=== PATIENT | female | born 1995 | race Caucasian/White ===

== ENCOUNTER 2019-05-02 08:02 | Outpatient (CLI) | payer BC ==
[2019-05-02 08:46] LABS: BASOPHILS % (AUTO) 0.5 %; EOSINOPHILS # (AUTO) 0.1 10^3/uL (0.0-0.7); EOSINOPHILS % (AUTO) 0.8 %; HGB - HEMOGLOBIN 12.7 g/dL (12.0-16.0); LYMPHOCYTES # (AUTO) 2.7 10^3/uL (1.5-3.5); LYMPHOCYTES % (AUTO) 42.1 %; MEAN CORPUSCULAR HEMOGLOBIN 31.1 pg (27.0-31.0); MEAN CORPUSCULAR HGB CONC 32.8 g/dL (32.0-36.0); MEAN CORPUSCULAR VOLUME 94.6 fL (81.0-99.0); MEAN PLATELET VOLUME 10.2 fL (7.9-10.8); MONOCYTES # (AUTO) 0.4 10^3/uL (0.0-1.0); MONOCYTES % (AUTO) 5.7 %; NEUTROPHILS # (AUTO) 3.3 10^3/uL (1.5-6.6); NEUTROPHILS % (AUTO) 50.7 %; PLT - PLATELET COUNT 224 10^3/uL (130-450); RED BLOOD COUNT 4.09 10^6/uL (4.20-5.40); RED CELL DISTRIBUTION WIDTH 12.7 % (12.0-15.0); WHITE BLOOD COUNT 6.5 x10^3/uL (4.8-10.8)
[2019-05-02 08:58] LABS: ALBUMIN 4.4 g/dL (3.2-5.5); ALBUMIN/GLOBULIN RATIO 1.3 (1.0-2.2); ALKALINE PHOSPHATASE 47 IU/L (42-121); ALT ALANINE AMINOTRANSFERASE 13 IU/L (10-60); AST ASPARTATE AMINOTRANSFERASE 15 IU/L (10-42); BILIRUBIN,TOTAL 0.6 mg/dL (0.2-1.0); BUN - BLOOD UREA NITROGEN 14 mg/dL (6-20); CALCIUM 9.4 mg/dL (8.5-10.3); CARBON DIOXIDE - CO2 23 mmol/L (21-32); CHLORIDE 106 mmol/L (101-111); CHOL/HDL RATIO 5.1 (<4.4); CHOLESTEROL 218 mg/dL; CREATININE 0.6 mg/dL (0.4-1.0); GFR - MDRD 124 (>89); GLUCOSE 101 mg/dL (70-100); HDL CHOLESTEROL 43 mg/dL; LDL CHOLESTEROL,CALCULATED 153 mg/dL; LDL/HDL RATIO 3.6 (<4.4); SODIUM 140 mmol/L (135-145); TOTAL PROTEIN 7.8 g/dL (6.7-8.2); VLDL CHOLESTEROL 22 mg/dL
== END 2019-05-02 08:03 | disposition home or self-care (01) ==
LOC: LAB 08:02
PROVIDERS: ATTEND Nurse Practitioner
DX: Z00.00 Encounter for general adult medical examination without abnormal findings (principal)
CPT/HCPCS: 36415; 80053; 80061; 83721; 84443; 85025

== ENCOUNTER 2019-10-21 08:07 | Outpatient (CLI) | payer BC ==
[2019-10-21 08:54] LABS: CARBON DIOXIDE - CO2 26 mmol/L (21-32); CHLORIDE 104 mmol/L (101-111); MAGNESIUM 2.1 mg/dL (1.7-2.8); SODIUM 138 mmol/L (135-145)
[2019-10-21 09:57] LABS: CRP - C-REACTIVE PROTEIN < 1.0 mg/dL (0-1.0)
== END 2019-10-21 08:08 | disposition home or self-care (01) ==
LOC: LAB 08:07
PROVIDERS: ATTEND Nurse Practitioner
DX: M25.50 Pain in unspecified joint (principal)
CPT/HCPCS: 36415; 80051; 83735; 84443; 85651; 86140

== ENCOUNTER 2019-10-31 10:40 | Outpatient (CLI) | payer BC | END 2019-10-31 23:59 | disposition home or self-care (01) | LOC: LAB.R 10:40 | PROVIDERS: ATTEND Nurse Practitioner | DX: J06.9 Acute upper respiratory infection, unspecified (principal) | CPT/HCPCS: 87275; 87276 ==

== ENCOUNTER 2020-09-12 08:00 | Outpatient (CLI) | payer BC, OTHER ==
[2020-09-12 18:45] LABS: BASOPHILS % (AUTO) 0.5 %; EOSINOPHILS # (AUTO) 0.1 10^3/uL (0.0-0.7); HGB - HEMOGLOBIN 13.1 g/dL (12.0-16.0); LYMPHOCYTES # (AUTO) 2.9 10^3/uL (1.5-3.5); LYMPHOCYTES % (AUTO) 36.8 %; MEAN CORPUSCULAR HEMOGLOBIN 31.5 pg (27.0-31.0); MEAN CORPUSCULAR VOLUME 92.5 fL (81.0-99.0); MEAN PLATELET VOLUME 10.2 fL (7.9-10.8); MONOCYTES # (AUTO) 0.4 10^3/uL (0.0-1.0); MONOCYTES % (AUTO) 5.5 %; NEUTROPHILS # (AUTO) 4.4 10^3/uL (1.5-6.6); NEUTROPHILS % (AUTO) 55.9 %; PLT - PLATELET COUNT 248 10^3/uL (130-450); RED BLOOD COUNT 4.16 10^6/uL (4.20-5.40); RED CELL DISTRIBUTION WIDTH 12.6 % (12.0-15.0); WHITE BLOOD COUNT 7.9 x10^3/uL (4.8-10.8)
[2020-09-12 19:21] LABS: ALBUMIN 4.7 g/dL (3.2-5.5); ALBUMIN/GLOBULIN RATIO 1.6 (1.0-2.2); BILIRUBIN,TOTAL 1.1 mg/dL (0.2-1.0); CALCIUM 9.8 mg/dL (8.5-10.3); CREATININE 0.5 mg/dL (0.4-1.0); TOTAL PROTEIN 7.6 g/dL (6.7-8.2)
[2020-09-12 19:27] LABS: HEMOGLOBIN A1c% 4.7 % (4.27-6.07)
== END 2020-09-12 23:59 | disposition home or self-care (01) ==
LOC: LAB.WCP 08:00
PROVIDERS: ATTEND Nurse Practitioner Family
DX: R10.9 Unspecified abdominal pain (principal); Z86.39 Personal history of other endocrine, nutritional and metabolic disease
CPT/HCPCS: 36415; 80053; 82150; 83036; 83690; 85025

== ENCOUNTER 2020-09-20 16:38 | Outpatient (CLI) | payer BC, OTHER ==
[2020-09-20] MEDS ORDERED: IOVERSOL 320 100 ML VIAL IVP ONE ×2 (16:54→17:52)
[2020-09-20] MEDS ORDERED: IOVERSOL 320 50 ML VIAL ONE (16:54)
[2020-09-20] MEDS ORDERED: IOVERSOL 320 50 ML VIAL PO ONE (17:53)
--- NOTE | 2020-09-20 19:17 | CT Report ---
PROCEDURE: Abdomen/Pelvis W INDICATIONS: ABD PAIN CONTRAST: IV CONTRAST: Optiray 320 ml: 100 PO CONTRAST: Optiray 320 ml50 TECHNIQUE: After the administration of nonionic contrast, 5 mm thick sections acquired from the diaphragms to th e symphysis. 5 mm thick coronal and sagittal reformats were acquired. For radiation dose reduction, the following was used: automated exposure control, adjustment of mA and/or kV according to patient size. COMPARISON: None. FINDINGS: Image quality: Excellent. ABDOMEN: Lung bases: Lung bases are clear. Heart size is normal. Solid organs: Liver and spleen are normal in size and enhancement. Gallbladder appears normal Bili christy system is non dilated. Pancreas enhances normally. No adrenal nodules. Kidneys demonstrate nor mal size and enhancement, without hydronephrosis. Peritoneum and bowel: Bowel loops demonstrate normal wall thickness and caliber. No free fluid or a ir. Nodes and vessels: No retroperitoneal or mesenteric adenopathy by size criteria. Aorta and inferior vena cava are normal in size. Miscellaneous: No ventral hernias. PELVIS: Genitourinary: Bladder wall thickness is normal. What appears to be an involuting right ovarian cys t is superimposed on an additional cystic structure with the overall dimensions approximately 3.6 cm. No abnormal free fluid or suspected hemorrhage within the peritoneal space is found. A normal or abn ormal appendix is not seen. Miscellaneous: No inguinal hernias or adenopathy. Bones: No suspicious bony lesions. No vertebral body compression fractures. IMPRESSION: Probable hemorrhagic right ovarian cyst, but no hemorrhage into the peritoneal space is seen. A definite source of abdominal pain such as appendicitis or diverticulitis is not found. Depend ing on the clinical status follow-up by pelvic ultrasound may be warranted. Reviewed by: Edgardo Roque MD on 09/20/2020 7:16 PM PST Approved by: Edgardo Roque MD on 09/20/2020 7:16 PM PST Station ID: [id number]
== END 2020-09-20 16:39 | disposition home or self-care (01) ==
LOC: DI 16:38
PROVIDERS: ATTEND Nurse Practitioner Family
DX: R10.9 Unspecified abdominal pain (principal)
CPT/HCPCS: 74177; Q9967

== ENCOUNTER 2020-09-27 18:41 | Outpatient (CLI) | payer BC, OTHER ==
--- NOTE | 2020-09-28 09:08 | Ultrasound Report ---
PROCEDURE: Pelvic w/Transvaginal INDICATIONS: RT SIDE OVARIAN CYST TECHNIQUE: Real-time scanning was performed of the pelvic organs, with image documentation. Additional endovagi nal scanning was necessary due to incomplete visualization of the adnexal and endometrial structures by transabdominal scanning. COMPARISON: CT abdomen pelvis 09/20/2020 FINDINGS: Transabdominal scanning: Limited scanning through the kidneys shows no hydronephrosis. No pathologi c free abdominal or pelvic fluid. Endovaginal scanning: Uterus: Uterus is anteverted and normal in size at 7.0 x 3.8 x 5.4 cm. The endometrium measures 7.7 mm in combined thickness. A single less than 2 mm endometrial cyst is present, nonspecific. Ovaries: The right ovary measures 3.1 x 2.4 x 2.9 cm for a volume of 11.3 cc. There is a simple susan nant follicle measuring 1.6 cm. There is otherwise normal follicular echotexture without associated m ass or cyst. The left ovary measures 2.9 x 1.9 x 2.4 cm for a volume of 6.9 cc. There is a normal fol licular echotexture. Normal vascularity in each ovary. IMPRESSION: 1. There has been interval resolution of right ovarian corpus luteum since the prior study. 2. No evidence of residual hemorrhagic cyst on either ovary. 3. Normal uterus. Reviewed by: Joselin Hahn MD on 09/28/2020 9:06 AM PST Approved by: Joselin Hahn MD on 09/28/2020 9:06 AM PST Station ID: [id number]
--- NOTE | 2020-09-29 00:14 | Ultrasound Report ---
PROCEDURE: Abdomen Limited INDICATIONS: RUQ PAIN TECHNIQUE: Real-time focused scanning was performed of the right upper quadrant, with image documentation. COMPARISON: CT abdomen pelvis 09/20/2020. FINDINGS: The liver demonstrates no focal hepatic lesions. Gallbladder appears within normal limits without gallstones, wall thickening, or pericholecystic flui d. No intra or extrahepatic biliary ductal dilatation. Common bile duct measures up to 2 mm. The visualized pancreas appears unremarkable sonographically. The right kidney measures up to 12 cm. No hydronephrosis. Evaluation of the abdominal wall in the right periumbilical region in the area of pain demonstrates n o discrete hernia. IMPRESSION: 1. No evidence of cholelithiasis or cholecystitis. 2. No evidence of right hydronephrosis. 3. No discrete abdominal wall hernia identified in the right periumbilical region in the area of pain . Reviewed by: Rogelio Wilde MD on 09/29/2020 12:13 AM PST Approved by: Rogelio Wilde MD on 09/29/2020 12:13 AM PST Station ID: [id number]
== END 2020-09-27 18:42 | disposition home or self-care (01) ==
LOC: DI 18:41
PROVIDERS: ATTEND Family Medicine
DX: R10.11 Right upper quadrant pain (principal); N83.291 Other ovarian cyst, right side

== ENCOUNTER 2020-11-20 16:11 | Outpatient (CLI) | payer OTHER | END 2020-11-20 16:12 | disposition home or self-care (01) | LOC: COV 16:11 | PROVIDERS: ATTEND Family Medicine | DX: R05 Cough (principal); M79.10 Myalgia, unspecified site; R53.83 Other fatigue; R68.83 Chills (without fever); R19.7 Diarrhea, unspecified; R11.11 Vomiting without nausea; Z20.822 Contact with and (suspected) exposure to COVID-19 ==

== ENCOUNTER 2021-01-22 14:14 | Outpatient (CLI) | payer OTHER ==
[2021-01-22 15:02] LABS: THYROID STIMULATING HORMONE 1.41 uIU/mL (0.34-5.60)
[2021-01-22 15:07] LABS: PROLACTIN 27.56 ng/mL
[2021-01-22 15:29] LABS: FOLLICLE STIMULATING HORMONE 1.49 mIU/mL
[2021-01-22 15:30] LABS: LUTEINIZING HORMONE 5.32 mIU/mL
[2021-01-23 06:32] LABS: ESTRADIOL 135 pg/mL
== END 2021-01-22 14:15 | disposition home or self-care (01) ==
LOC: LAB 14:14
PROVIDERS: ATTEND Obstetrics & Gynecology
DX: N97.9 Female infertility, unspecified (principal)
CPT/HCPCS: 36415; 82626; 82670; 83001; 83002; 84146; 84443

== ENCOUNTER 2021-01-23 08:00 | Outpatient (CLI) | payer OTHER ==
[2021-01-23 21:07] LABS: CHLAMYDIA TRACHOMATIS DNA NEGATIVE (NEGATIVE); NEISSERIA GONORRHOEAE DNA NEGATIVE (NEGATIVE); TRICHOMONAS VAGINALIS DNA NEGATIVE (NEGATIVE)
== END 2021-01-23 23:59 | disposition home or self-care (01) ==
LOC: LAB.R 08:00
PROVIDERS: ATTEND Obstetrics & Gynecology
DX: Z11.3 Encounter for screening for infections with a predominantly sexual mode of transmission (principal)
CPT/HCPCS: 87491; 87591; 87661